=== PATIENT | female | born 1940 | race Caucasian/White ===

== ENCOUNTER 2020-10-12 17:20 | Observation (INO) | payer MEDICARE ==
[2020-10-12 18:27] LABS: #Eosinphils 0.1 10x3/uL (0.0-0.5); #Monocytes 0.3 10x3/uL (0.0-1.1); #Neutrophils 2.8 10x3/uL (1.5-8.4); %Basophils 0.4 % (0.0-2.0); %Eosinophils 1.7 % (0.0-6.0); %Lymphocytes 30.7 % (18.0-47.0); %Monocytes 6.7 % (0.0-10.0); %Neutrophils 59.9 % (40.0-75.0); Hemoglobin 10.6 g/dL (12.0-15.5); Mean Corpuscular HGB CONC 30.3 g/dL (32.0-36.0); Mean Corpuscular Hemoglobin 25.7 pg (27.0-33.0); Platelet Count 225 10x3/uL (150-450); RBC Distribution Width 14.1 % (11.5-14.5); Red Blood Cell (RBC) Count 4.12 10x6/uL (3.90-5.03); White Blood Cell (WBC) Count 4.6 10x3/uL (3.5-10.5)
[2020-10-12 18:44] LABS: ALT (SGPT) 16 U/L (8-55); AST (SGOT) 24 U/L (5-34); Albumin 4.1 g/dL (3.4-4.8); Alkaline Phosphatase 104 U/L (40-110); Anion Gap 13 mmol/L (10-20); BUN (Urea Nitrogen) 14 mg/dL (9.8-20.1); Bilirubin, Total 0.5 mg/dL (0.2-1.2); CK (CPK) 58 U/L (29-168); Calc. Creatinine Clearance 0 mL/min (70-130); Calcium 9.3 mg/dL (7.8-10.44); Carbon Dioxide 28 mmol/L (23-31); Chloride 105 mmol/L (98-107); Glucose 111 mg/dL (83-110); Lipase 33 U/L (8-78); Potassium 3.6 mmol/L (3.5-5.1); Protein, Total 7.1 g/dL (5.8-8.1); Sodium 142 mmol/L (136-145)
[2020-10-12] MEDS ORDERED: Aspirin Chewable 81 MG TAB ONE (19:12)
[2020-10-12] MEDS ORDERED: ALPRAZolam 0.5 MG TAB PO PRN (19:41)
[2020-10-12] MEDS ORDERED: Ondansetron PF 4 MG/2 ML Vial IVP PRN (19:44)
[2020-10-12] MEDS ORDERED: Acetaminophen 325 MG TAB PO PRN (19:44)
[2020-10-12] MEDS ORDERED: Ondansetron ODT 4 MG TAB PO PRN (19:44)
[2020-10-12] MEDS ORDERED: HYDROcodone/Acetaminophen 5/325 mg Tablet PO PRN (19:44)
[2020-10-12 20:05] LABS: Prothrombin Time 10.9 sec (9.5-12.1)
[2020-10-12 20:07] LABS: Digoxin Less than 0.15 ng/mL (0.8-2.0)
[2020-10-12] MEDS: Amlodipine 5 MG TAB PO SCH (22:40)
[2020-10-12] MEDS: Metoprolol Tartrate 25 MG TAB PO SCH (22:43)
[2020-10-12 23:40] VITALS: BMI 26.5
[2020-10-13 04:47] LABS: #Eosinphils 0.2 10x3/uL (0.0-0.5); #Monocytes 0.5 10x3/uL (0.0-1.1); #Neutrophils 2.3 10x3/uL (1.5-8.4); %Basophils 0.4 % (0.0-2.0); %Eosinophils 3.4 % (0.0-6.0); %Lymphocytes 39.6 % (18.0-47.0); %Monocytes 10.4 % (0.0-10.0); Hemoglobin 9.3 g/dL (12.0-15.5); Mean Corpuscular HGB CONC 30.4 g/dL (32.0-36.0); Mean Corpuscular Hemoglobin 26.2 pg (27.0-33.0); Mean Corpuscular Volume 86.2 fl (81.6-98.3); Mean Platelet Volume 9.6 fl (7.4-10.4); Platelet Count 173 10x3/uL (150-450); Red Blood Cell (RBC) Count 3.55 10x6/uL (3.90-5.03)
[2020-10-13 04:55] LABS: Anion Gap 10 mmol/L (10-20); BUN (Urea Nitrogen) 15 mg/dL (9.8-20.1); Calc. Creatinine Clearance 66 mL/min (70-130); Calcium 8.9 mg/dL (7.8-10.44); Carbon Dioxide 31 mmol/L (23-31); Chloride 106 mmol/L (98-107); Glucose 100 mg/dL (83-110); Potassium 3.8 mmol/L (3.5-5.1); Sodium 143 mmol/L (136-145)
[2020-10-13] MEDS ORDERED: Levothyroxine Sodium 100 MCG TAB PO SCH (06:00)
[2020-10-13] MEDS ORDERED: Levothyroxine Sodium 75 MCG TAB PO SCH (06:00)
[2020-10-13] MEDS ORDERED: Ferrous Sulfate 325 MG TAB PO SCH (08:00)
[2020-10-13] MEDS: Amlodipine 5 MG TAB PO SCH (08:51)
[2020-10-13] MEDS: Metoprolol Tartrate 25 MG TAB PO SCH (08:53)
[2020-10-13] MEDS ORDERED: FLU VACC QS2020-21(65YR UP)/PF 240 MCG/0.7 ML SYRINGE IM ONE (09:00)
[2020-10-13] MEDS ORDERED: Enoxaparin Sodium 40 MG/0.4 ML SYRINGE SC SCH (09:00)
[2020-10-13] MEDS ORDERED: DILTIAZEM HCL 120 MG PO SCH (09:00)
[2020-10-13] MEDS ORDERED: Digoxin 0.125 MG TAB PO SCH (09:00)
[2020-10-13] MEDS ORDERED: Rosuvastatin 10 MG TAB PO SCH (09:00)
[2020-10-13] MEDS ORDERED: Calcium Carbonate 600 MG TAB PO SCH (09:00)
[2020-10-13] MEDS ORDERED: Aspirin 81 mg Enteric Coated Tablet PO SCH (09:00)
[2020-10-13] MEDS ORDERED: Warfarin Sodium 3 MG TAB PO SCH (09:00)
[2020-10-13 14:43] VITALS: BP 128/68; TEMP 98.1
[2020-10-13 16:56] LABS: SARS-CoV-2 PCR by NAA Not Detected (NotDetected)
== END 2020-10-13 16:48 | disposition home or self-care (01) ==
LOC: CSHERS 17:20 → CSHTELE 21:07
PROVIDERS: ADMIT Internal Medicine; ATTEND Hospitalist
DX: R42 Dizziness and giddiness (principal); I10 Essential (primary) hypertension; E78.5 Hyperlipidemia, unspecified; E03.9 Hypothyroidism, unspecified; Z86.79 Personal history of other diseases of the circulatory system; Z79.899 Other long term (current) drug therapy; Z79.82 Long term (current) use of aspirin; Z95.0 Presence of cardiac pacemaker; Z20.822 Contact with and (suspected) exposure to COVID-19
CPT/HCPCS: 70450; 71045; 80048; 80162; 82550; 83690; 83735; 84484; 85025; 85610; 93005; 96372; 99285; G0378 ×3; U0003; U0005; 36415; 80053; 84443; 87635; J1650

== ENCOUNTER 2021-09-04 10:41 | Outpatient (CLI) | payer MEDICARE | END 2021-09-04 10:42 | disposition home or self-care (01) | LOC: CSHMAMMO 10:41 | PROVIDERS: ATTEND Obstetrics & Gynecology | DX: Z12.31 Encounter for screening mammogram for malignant neoplasm of breast (principal); M81.0 Age-related osteoporosis without current pathological fracture; M85.851 Other specified disorders of bone density and structure, right thigh; M85.852 Other specified disorders of bone density and structure, left thigh; Z98.890 Other specified postprocedural states; Z85.3 Personal history of malignant neoplasm of breast; Z80.3 Family history of malignant neoplasm of breast | CPT/HCPCS: 77063; 77067; 77080 ==

== ENCOUNTER 2022-10-29 10:19 | Outpatient (CLI) | payer MEDICARE | END 2022-10-29 10:20 | disposition home or self-care (01) | LOC: CSHMAMMO 10:19 | PROVIDERS: ATTEND Family Medicine | DX: Z12.31 Encounter for screening mammogram for malignant neoplasm of breast (principal); R92.1 Mammographic calcification found on diagnostic imaging of breast; Z91.89 Other specified personal risk factors, not elsewhere classified; Z85.3 Personal history of malignant neoplasm of breast; Z98.890 Other specified postprocedural states; Z80.3 Family history of malignant neoplasm of breast | CPT/HCPCS: 77063; 77067 ==